=== PATIENT | female | born 1970 | race Caucasian/White ===

== ENCOUNTER → 2017-07-28 | Outpatient (CLI) | payer OTHER ==
[~2017-07-28] MED LIST: TRAZ100T15 PO
== END | disposition home or self-care (01) ==
LOC: CFH 06:46
PROVIDERS: ATTEND Family Medicine
DX: R42 Dizziness and giddiness (principal); R51 Headache; R41.3 Other amnesia
CPT/HCPCS: 70551; 93880

== ENCOUNTER 2017-09-22 16:10 | Emergency (ER) | payer OTHER ==
[~2017-09-22] VITALS: Ht 175.3 cm; Wt 79.2 kg
[2017-09-22 17:11] LABS: BASOPHILS # (AUTO) 0.01 x10^3/uL (0-0.1); BASOPHILS % (AUTO) 0 % (0-1); EOSINOPHILS # (AUTO) 0.13 x10^3/uL (0-0.4); EOSINOPHILS % (AUTO) 2 % (1-7); LYMPHOCYTES # (AUTO) 2.58 x10^3/uL (1-3.4); LYMPHOCYTES % (AUTO) 31 % (22-44); MD NO; MEAN CORPUSCULAR HEMOGLOBIN 31.6 pg (27.0-34.8); MEAN CORPUSCULAR HGB CONC 33.6 g/dL (32.4-35.8); MEAN CORPUSCULAR VOLUME 93.9 fL (80-100); MEAN PLATELET VOLUME 9.6 fL (7.4-10.4); MONOCYTES # (AUTO) 0.52 x10^3/uL (0.2-0.8); MONOCYTES % (AUTO) 6 % (2-9); NEUTROPHILS # (AUTO) 5.08 x10^3/uL (1.8-6.8); NEUTROPHILS % (AUTO) 61 % (42-75); PLATELET COUNT 176 x10^3/uL (130-400); RED BLOOD COUNT 4.53 x10^6/uL (3.82-5.3); RED CELL DISTRIBUTION WIDTH 13.4 % (9.6-15.2)
[2017-09-22 17:24] LABS: ALBUMIN 4.2 g/dL (3.4-5.0); ANION GAP 10 mmol/L (5-15); CALCIUM 8.5 mg/dL (8.5-10.1); CHLORIDE 109 mmol/L (98-107); CREATININE 1.01 mg/dL (0.55-1.02)
[2017-09-22] MEDS ORDERED: OMNIPAQUE 350 MG/ML, 100ML BOTTLE ONE (19:39)
[2017-09-22 19:42] VITALS: BP 111/68
== END 2017-09-22 20:02 | disposition home or self-care (01) ==
LOC: ED 19:40
DX: R68.84 Jaw pain (principal); Z88.0 Allergy status to penicillin; Z90.49 Acquired absence of other specified parts of digestive tract
CPT/HCPCS: 36415; 70491; 80048; 82040; 85025; 99285; Q9967

== ENCOUNTER 2018-01-19 00:27 | Emergency (ER) | payer OTHER ==
[~2018-01-19] VITALS: Ht 175.3 cm; Wt 79.2 kg
[2018-01-19 00:30] VITALS: BP 129/87
[2018-01-19] MEDS ORDERED: CEPH-368 PO (00:37)
[2018-01-19] MEDS ORDERED: META800T PO (00:37)
[2018-01-19] MEDS ORDERED: KETOROLAC 30 MG/1 ML IM ONE (01:00)
[2018-01-19] MEDS ORDERED: DIAZEPAM 5 MG TABLET PO ONE (01:00)
[2018-01-19 01:08] LABS: BASOPHILS # (AUTO) 0.02 x10^3/uL (0-0.1); BASOPHILS % (AUTO) 0 % (0-1); EOSINOPHILS # (AUTO) 0.28 x10^3/uL (0-0.4); EOSINOPHILS % (AUTO) 3 % (1-7); LYMPHOCYTES # (AUTO) 2.45 x10^3/uL (1-3.4); LYMPHOCYTES % (AUTO) 28 % (22-44); MD NO; MEAN CORPUSCULAR HEMOGLOBIN 32.2 pg (27.0-34.8); MEAN CORPUSCULAR HGB CONC 34.8 g/dL (32.4-35.8); MEAN CORPUSCULAR VOLUME 92.7 fL (80-100); MEAN PLATELET VOLUME 9.6 fL (7.4-10.4); MONOCYTES # (AUTO) 0.85 x10^3/uL (0.2-0.8); MONOCYTES % (AUTO) 10 % (2-9); NEUTROPHILS # (AUTO) 5.29 x10^3/uL (1.8-6.8); NEUTROPHILS % (AUTO) 60 % (42-75); PLATELET COUNT 160 x10^3/uL (130-400); RED BLOOD COUNT 4.09 x10^6/uL (3.82-5.3); RED CELL DISTRIBUTION WIDTH 12.9 % (9.6-15.2)
[2018-01-19 01:20] LABS: ALBUMIN 3.7 g/dL (3.4-5.0); ANION GAP 6 mmol/L (5-15); CALCIUM 8.5 mg/dL (8.5-10.1); CHLORIDE 109 mmol/L (98-107); CREATININE 0.82 mg/dL (0.55-1.02)
[2018-01-19] MEDS ORDERED: KETOROLAC 30 MG/1 ML ONE (01:48)
[2018-01-19] MEDS ORDERED: DIAZEPAM 5 MG TABLET ONE (01:49)
== END 2018-01-19 02:41 | disposition home or self-care (01) ==
LOC: ED 01:31
DX: S16.1XXA Strain of muscle, fascia and tendon at neck level, initial encounter (principal); X58.XXXA Exposure to other specified factors, initial encounter; Y93.89 Activity, other specified; Y99.8 Other external cause status; Y92.89 Other specified places as the place of occurrence of the external cause
CPT/HCPCS: 36415; 80048; 82040; 85025; 96372; 99284; J1885

== ENCOUNTER 2018-01-20 20:58 | Emergency (ER) | payer OTHER ==
[~2018-01-20] VITALS: Ht 175.3 cm; Wt 79.5 kg
[~2018-01-20 20:58] MED LIST changes: +CEPH-368 PO; +META800T PO
[2018-01-20] MEDS ORDERED: KETOROLAC 30 MG/1 ML ONE (21:54)
[2018-01-20] MEDS ORDERED: MORPHINE SULFATE 4 MG/ML, 1ML ONE (21:54)
[2018-01-20] MEDS ORDERED: KETOROLAC 30 MG/1 ML IVPush ONE (22:00)
[2018-01-20] MEDS ORDERED: SODIUM CHLORIDE FLUSH 10ML SYR IVF ONE (22:00)
[2018-01-20] MEDS ORDERED: MORPHINE SULFATE 4 MG/ML, 1ML IVPush ONE (22:00)
[2018-01-20 22:14] LABS: BASOPHILS # (AUTO) 0.04 x10^3/uL (0-0.1); BASOPHILS % (AUTO) 1 % (0-1); EOSINOPHILS # (AUTO) 0.21 x10^3/uL (0-0.4); EOSINOPHILS % (AUTO) 2 % (1-7); LYMPHOCYTES % (AUTO) 25 % (22-44); MD NO; MEAN CORPUSCULAR HEMOGLOBIN 31.9 pg (27.0-34.8); MEAN CORPUSCULAR HGB CONC 34.3 g/dL (32.4-35.8); MEAN CORPUSCULAR VOLUME 93.1 fL (80-100); MEAN PLATELET VOLUME 9.7 fL (7.4-10.4); MONOCYTES # (AUTO) 0.95 x10^3/uL (0.2-0.8); MONOCYTES % (AUTO) 11 % (2-9); NEUTROPHILS # (AUTO) 5.56 x10^3/uL (1.8-6.8); NEUTROPHILS % (AUTO) 62 % (42-75); PLATELET COUNT 161 x10^3/uL (130-400); RED BLOOD COUNT 4.26 x10^6/uL (3.82-5.3)
[2018-01-20 22:15] LABS: HCT (SEDRATE) 37.9 % (34.6-47.8)
[2018-01-20 22:25] LABS: ALBUMIN 3.7 g/dL (3.4-5.0); ANION GAP 7 mmol/L (5-15); CALCIUM 8.3 mg/dL (8.5-10.1); CHLORIDE 109 mmol/L (98-107); CREATININE 0.81 mg/dL (0.55-1.02)
[2018-01-20] MEDS ORDERED: OMNIPAQUE 350 MG/ML, 100ML BOTTLE ONE (22:59)
[2018-01-21] VITALS: BP 100/61
== END 2018-01-21 00:02 | disposition home or self-care (01) ==
LOC: ED 23:21
DX: S16.1XXA Strain of muscle, fascia and tendon at neck level, initial encounter (principal); Z88.0 Allergy status to penicillin; X58.XXXA Exposure to other specified factors, initial encounter; Y93.89 Activity, other specified; Y99.8 Other external cause status; Y92.89 Other specified places as the place of occurrence of the external cause
CPT/HCPCS: 36415; 70491; 80048; 82040; 85025; 85651; 86140; 96374; 96375; 99285; J1885; Q9967

== ENCOUNTER → 2018-01-21 | Outpatient (CLI) | payer OTHER ==
[~2018-01-21] MED LIST changes: +GADOBUTROL 7.5 MMOL/7.5 ML PFS ONE
== END | disposition home or self-care (01) ==
LOC: RAD 17:03
PROVIDERS: ATTEND Family Medicine
DX: M48.02 Spinal stenosis, cervical region (principal); M47.812 Spondylosis without myelopathy or radiculopathy, cervical region; R22.1 Localized swelling, mass and lump, neck
CPT/HCPCS: 70543; 72156; A9585

== ENCOUNTER 2018-07-16 21:14 | Emergency (ER) | payer OTHER ==
[~2018-07-16] VITALS: Ht 175.3 cm; Wt 78.9 kg
[~2018-07-16 21:14] MED LIST changes: -GADOBUTROL 7.5 MMOL/7.5 ML PFS ONE; +TRAZ-137 PO; -TRAZ100T15 PO
[2018-07-16 21:18] VITALS: BP 128/84
--- NOTE | 2018-07-16 23:11 | NUR ---
PT GIVEN DC INSTRUCTIONS AND SCRIPT. PT EDUCATED REGARDING DC MEDICATION WHICH IS NAPROXEN. PT AOX4. RESPS EVEN AND UNLABORED. PT AMB TO DC WITH STEADY GAIT.
== END 2018-07-16 23:11 | disposition home or self-care (01) ==
LOC: ED 22:09
DX: M79.621 Pain in right upper arm (principal); F17.210 Nicotine dependence, cigarettes, uncomplicated
CPT/HCPCS: 82962; 99284

== ENCOUNTER → 2018-07-24 | Outpatient (CLI) | payer OTHER ==
[~2018-07-24] MED LIST changes: +ALPRazolam 1MG TABLET ONE
== END | disposition home or self-care (01) ==
LOC: RAD 14:50
PROVIDERS: ATTEND Family Medicine
DX: M47.22 Other spondylosis with radiculopathy, cervical region (principal); R51 Headache; M79.603 Pain in arm, unspecified
CPT/HCPCS: 70551

== ENCOUNTER → 2018-08-05 | Outpatient (CLI) | payer OTHER | END | disposition home or self-care (01) | LOC: RAD 14:09 | PROVIDERS: ATTEND Nurse Practitioner Family | DX: M47.812 Spondylosis without myelopathy or radiculopathy, cervical region (principal); M40.292 Other kyphosis, cervical region; M50.322 Other cervical disc degeneration at C5-C6 level; M48.02 Spinal stenosis, cervical region | CPT/HCPCS: 72050; 72141 ==

== ENCOUNTER → 2018-10-13 | Outpatient (CLI) | payer OTHER ==
[~2018-10-13] MED LIST changes: -ALPRazolam 1MG TABLET ONE
== END | disposition home or self-care (01) ==
LOC: CFH 10:27
PROVIDERS: ATTEND Nurse Practitioner
DX: Z12.31 Encounter for screening mammogram for malignant neoplasm of breast (principal)
CPT/HCPCS: 77063; 77067

== ENCOUNTER → 2020-01-10 | Outpatient (CLI) | payer OTHER ==
[~2020-01-10] MED LIST changes: -TRAZ-137 PO; +TRAZ-175 PO
== END | disposition home or self-care (01) ==
LOC: CVU 15:49
PROVIDERS: ATTEND Internal Medicine Cardiovascular Disease
DX: R09.89 Other specified symptoms and signs involving the circulatory and respiratory systems (principal); R07.89 Other chest pain
CPT/HCPCS: 93880